=== PATIENT | female | born 1995 | race Caucasian/White ===

== ENCOUNTER 2022-09-28 02:00 | Emergency (ER) | payer OTHER ==
[~2022-09-28] VITALS: Ht 162.6 cm; Wt 74.8 kg
[2022-09-28 02:03] VITALS: BP 117/69
--- NOTE | 2022-09-28 02:10 | NUR ---
TO LOBBY FOLLOWING TRIAGE
--- NOTE | 2022-09-28 03:21 | NUR ---
Dr. Garcia examining patient.
[2022-09-28] MEDS ORDERED: NAPR-54 PO (03:46)
[2022-09-28 03:54] VITALS: BP 117/69
--- NOTE | 2022-09-28 03:54 | NUR ---
D/C BY DR.KWAW SCOTT LEÓN
== END 2022-09-28 03:54 | disposition home or self-care (01) ==
LOC: MED 02:00
DX: S63.682A Other sprain of left thumb, initial encounter (principal); W01.0XXA Fall on same level from slipping, tripping and stumbling without subsequent striking against object, initial encounter; Y93.89 Activity, other specified; Y92.89 Other specified places as the place of occurrence of the external cause; Y99.8 Other external cause status
CPT/HCPCS: 73140; 99283